=== PATIENT | female | born 1940 | race Caucasian/White ===

== ENCOUNTER 2021-08-14 08:41 | Emergency (ER) | payer MEDICAID ==
[~2021-08-14] VITALS: Ht 160 cm; Wt 69.0 kg
[2021-08-14] MEDS ORDERED: MORPHINE SULFATE 10 MG/ML CPJ IM ONE (09:15)
[2021-08-14] MEDS ORDERED: HYDROCODONE/ACETAMINOPHEN 5/325MG TABLET PO ONE (11:15)
[2021-08-14 11:41] VITALS: BP 120/89
[2021-08-14] MEDS ORDERED: MELO15TA13 MT (12:17)
== END 2021-08-14 13:13 | disposition home or self-care (01) ==
LOC: ER 09:25
DX: S30.0XXA Contusion of lower back and pelvis, initial encounter (principal); S32.9XXA Fracture of unspecified parts of lumbosacral spine and pelvis, initial encounter for closed fracture; W18.39XA Other fall on same level, initial encounter; Y93.89 Activity, other specified; Y92.018 Other place in single-family (private) house as the place of occurrence of the external cause; K57.90 Diverticulosis of intestine, part unspecified, without perforation or abscess without bleeding
CPT/HCPCS: 72131; 72192; 73700; 96372; 99284; J2270